=== PATIENT | female | born 1985 | race Caucasian/White ===

== ENCOUNTER → 2019-07-31 11:37 | Outpatient (CLI) | payer OTHER, SELFPAY ==
[2019-08-01 14:31] LABS: Strep Grp B PCR POS for Grp B Strep
== END ==
PROVIDERS: Visit Provider Family Medicine
DX: Z34.90 Encounter for supervision of normal pregnancy, unspecified, unspecified trimester (principal); Z3A.36 36 weeks gestation of pregnancy
CPT/HCPCS: 87653

== ENCOUNTER 2019-09-01 18:15 | Inpatient (IN) | payer OTHER, SELFPAY ==
[2019-09-01] MEDS: miSOPROStoL 25 MCG TABLET VAG (18:45)
[2019-09-01 20:00] LABS: Add Manual Diff / Slide Review NO; Basophils Absolute Auto 100 /uL (0-100); Basophils Percent Auto 0.8 % (0-2); Eosinophils Absolute Auto 100 /uL (0-450); Eosinophils Percent Auto 0.8 % (2-4); Hematocrit 35.4 % (36-46); Hemoglobin 12.1 g/dL (12.0-16.0); Lymphocytes Absolute Auto 2000 /uL (1100-4500); Lymphocytes Percent Auto 17.2 % (25-40); Mean Corpuscular HGB Conc 34.1 % (30-36); Mean Corpuscular Hemoglobin 30.9 PG (26-34); Mean Corpuscular Volume 90.6 fL (80-100); Monocytes Absolute Auto 600 /uL (0-900); Monocytes Percent Auto 5.3 % (3-14); Neutrophils Absolute Auto 8900 /uL (1500-7000); Neutrophils Percent Auto 75.9 % (50-75); Platelet Count 178 X10^3/uL (150-400); Red Cell Distribution Width 14.1 % (11.6-14.8); White Blood Cell Count 11.7 X10^3/uL (4.5-11.0)
[2019-09-02] MEDS: PENICILLIN G POTASSIUM 5,000,000 UNIT in DEXTROSE 5% IN WATER 250 ML IV (01:44)
[2019-09-02] MEDS: LACTATED RINGERS 1,000 ML 100 ML IV ×2 (01:44→03:42)
--- NOTE | 2019-09-02 03:11 | P.HPOB_ITS ---
OB HPI Date/Time Date of admission: 09/01/19 Date Patient Seen: 09/02/19 Time Patient Seen: 03:11 History of Present Condition Chief complaint: EVAL OF LABOR : 1 Para: 0 Estimated Date of Delivery: 08/24/19 Estimated Gestational Age (weeks): 41w2d Narrative: Graciela Edwards is a 34 year old at 41w2d who presented for IOL for post-dates. Pt denies contractions, bleeding, LOF prior to presentation. She was feeling baby move regularly. Indications Indication for induction OB: post dates History of Present care: good care and pounds weight gain (48) Dating criteria: based on 1st trimester US only Ultrasounds: normal 1st trimester US and normal mid trimester US Obstetrical complications: none Medical complications: none Preadmission Labs Blood type: O (+) positive -: Antibody screen: negative, GBS status: positive, HBsAG: negative, HIV: negative and RPR/VDLR: negative -: Chlamydia screen: not detected and Gonorrhea screen: not detected -: Rubella: immune and Varicella: immune HCT: 34.1 PAP: Normal Integrated screen: Negative 1 hr GTT: 122 Evaluation Evaluation Baseline heart rate: 150 Variability: Moderate (11-25) monitor accelerations: Present monitor decelerations: Variable Contraction Frequency (minutes): 2 Uterine Contraction Intensity: Strong/Firm Category of Tracing: II Cervical dilation (cm): 8 Cervical effacement (%): 100 station: +1 Laboratory results: Laboratory Tests 09/01/19 09/01/19 19:57 19:57 WBC 11.7 H RBC 3.90 L Hgb 12.1 Hct 35.4 L MCV 90.6 MCH 30.9 MCHC 34.1 RDW 14.1 Plt Count 178 Neut % (Auto) 75.9 H Lymph % (Auto) 17.2 L [place] % (Auto) 5.3 Eos % (Auto) 0.8 L Baso % (Auto) 0.8 Neut # (Auto) 8900 H Lymph # (Auto) 2000 [place] # (Auto) 600 Eos # (Auto) 100 Baso # (Auto) 100 Blood Type O Positive Antibody Screen Negative PFSH Family History (Updated 06/20/19 @ 11:53 by Bety Nelson RN) Grandfather Bone cancer Grandmother Leukemia Grandfather History of quadruple bypass Grandmother Myocardial infarction Social History marital status: household members: spouse pets and animals: Yes (X 1 cat and aware) education level: college (Univ.Degree) occupational status: unemployed current occupational exposures/hazards: No special kwasi needs: No Smoking Status: Never smoker Meds Home Medications and Allergies Home Medications Medication Instructions Recorded Confirmed Type prenat.vits,eloina,etd-xlpj-uyvvo 1 tab PO DAILY 06/20/19 08/07/19 History Allergies Allergy/AdvReac Type Severity Reaction Status Date / Time No Known Drug Allergies Allergy Verified 08/07/19 11:48 Exam Narrative Exam Narrative: Gen: NAD, laying comfortably in bed, appears well CV: RRR, no murmurs Resp: clear to auscultation bilaterally Abd: soft, nontender, nondistended, gravid Ext: trace edema Objective Labs Result Diagrams: 09/01/19 19:57 Labs: Laboratory Results - last 24 hr 09/01/19 09/01/19 19:57 19:57 WBC 11.7 H RBC 3.90 L Hgb 12.1 Hct 35.4 L MCV 90.6 MCH 30.9 MCHC 34.1 RDW 14.1 Plt Count 178 Neut % (Auto) 75.9 H Lymph % (Auto) 17.2 L [place] % (Auto) 5.3 Eos % (Auto) 0.8 L Baso % (Auto) 0.8 Neut # (Auto) 8900 H Lymph # (Auto) 2000 [place] # (Auto) 600 Eos # (Auto) 100 Baso # (Auto) 100 Blood Type O Positive Antibody Screen Negative Assessment and Plan Assessment and Plan Assessment and Plan narrative: 34yo at 41w2d who presented for IOL for post-dates. Pt without any complications in her . Received 1 dose of cytotec thus far, rapidly into active labor. Now with variable decels but overall reassuring FHT. GBS positive, received one dose of Penicillin thus far. Rh positive. - Expectant management, anticipate - Continue Penicillin prophylaxis, will attempt to avoid AROM until 2nd dose running - Epidural in place for pain control - No additional augmentation medications at this time. Continue to monitor c ontraction frequency.
--- NOTE | 2019-09-02 03:19 | PM.AN.REGBLK ---
[facility] <Casper Govea, DO - Last Filed: 09/02/19 13:44> Pre-procedure Procedure: Continuous Lumbar Epidural for L&D Attending OB provider: Maria R MARCH/DUY narrative: term labor, no complications Hx: No personal or family history of anesthesia problems. ASA Class: II Labs: Hct 35.4 % (36-46) L 09/01/19 19:57 Plt Count 178 X10^3/uL (150-400) 09/01/19 19:57 Medications: Current Medications Generic Name Dose Route Start Last Admin Trade Name Freq PRN Reason Stop Dose Admin Calcium Carbonate 500 mg 09/01/19 18:26 Tums PO Q2HR PRN Dyspepsia Fentanyl 50 mcg 09/01/19 18:26 Sublimaze IV Q1H PRN Pain, Moderate (4-6) Penicillin G Potassium 3,000,000 unit in 50 mls @ 100 mls/hr 09/01/19 18:30 Penicillin G Potassium IV Q4H HERMINIA Oxytocin/Lactated Ringer's 30 unit in 500 mls @ 3 mls/hr 09/01/19 18:30 Oxytocin Premix IV TITRATE HERMINIA Protocol 3 MILLIUNIT/MIN Lactated Ringer's 1,000 mls @ 100 mls/hr 09/01/19 18:30 09/02/19 01:44 Lactated Ringers IV 100 mls/hr CONT HERMINIA Administration Misoprostol 25 mcg 09/01/19 18:26 09/01/19 18:45 Cytotec VAG 25 mcg Q4HR PRN Administration Labor Induction Naloxone HCl 0.2 mg 09/01/19 18:26 Narcan IV Q2MIN PRN Opiate Reversal Ondansetron HCl 4 mg 09/01/19 18:26 Zofran IV Q4HR PRN Nausea And Vomiting Allergies: Allergies Allergy/AdvReac Type Severity Reaction Status Date / Time No Known Drug Allergies Allergy Verified 08/07/19 11:48 Procedure Insertion date: 09/02/19 Insertion time: 02:30 Prep/Local: betadine x3 Interspace: L2-3 Patient position: sitting Needle: 18 gauge wst.cntead (CSE: 27g Pencan through Hustead, clear CSF, 0.75mL 0.25% bupiv) Loss of resistance with: saline MARCELLUS at (cm): 3 Catheter placed at SKIN (cm): 9 Catheter in SPACE (cm): 6 Initial Medications TEST DOSE time: 02:31 TEST DOSE: 1.5% lidocaine with epinephrine 1:200k (mL): 3 BOLUS DOSE time: 02:32 BOLUS DOSE (mL): 3 BOLUS DOSE med: other (2% lidocaine) Infusion INFUSION: 0.125% bupivacaine and with fentanyl 2 mcg/mL Initial rate (mL/hr): 6 Post-procedure Anesthesia time START: 02:25 Anesthesia time END: 09:29 Post-procedure Anesthesia Assessment: Yes CV function: HR/BP stable, Yes Resp function: RR/sat/airway adequate, Yes Post-op hydration adequate, Yes Pain control adequate, Yes Nausea & vomiting absent and Yes Mental status appropriate
[2019-09-02] MEDS: PENICILLIN G POTASSIUM 3,000,000 UNIT/50 ML FROZ.PIGGY 100 UNIT IV (05:39)
--- NOTE | 2019-09-02 05:41 | PM.OBPNLAB ---
Date/Time Date Patient Seen: 09/02/19 Time Patient Seen: 05:40 Pain Control Pain control: epidural Pelvic Exam Dilation (cm): 10 Effacement (%): 100 station: +2 Amniotic membrane status: Ruptured Comments: After informed consent, AROM performed with production of meconium-stained fluid Contractions Monitor mode: External Contraction frequency (min): 2 Contraction duration (min): 1 Contraction pattern: Regular Contraction intensity: Strong/Firm Status status: Category l Heart Rate Baseline: 145 Monitor Accelerations: Present Monitor Decelerations: Absent Monitor Variability: Moderate Assessment and Plan Comments: 34yo at 41w2d here for IOL for post-dates. Received one dose of cytotec overnight. AROM performed with production of meconium-stained fluid. GBS positive, Rh positive. - Expectant management, anticipate - FHT reassuring - Continue Penicillin prophylaxis, currently on 2nd dose of Penicillin - Epidural for pain control in place
[2019-09-02] MEDS: OXYTOCIN 10 UNIT/ML VIAL 20 UNIT (09:40)
--- NOTE | 2019-09-02 10:28 | PM.OBPRVD ---
Labor & Delivery Delivery date: 09/02/19 Intrapartal events: None Cervical ripening method: per misoprostal protocol Induction method: none Delivery augmentation: rupture of membranes Delivery monitor: external FHT Route of delivery: Episiotomy description: None L&D Laceration Description: Perineal - 2nd Degree Estimated blood loss (mL): 300 Anesthesia type: Epidural Narrative: PROCEDURE: at 41w21 presented for post-dates IOL and was admitted to Labor and Delivery. The patient progressed through the 1st stage over 9 hours. Pt received 2 doses of Penicillin prior to delivery. AROM wasw performed with production of meconium-stained fluid. Pain was controlled with an epidural. The patient progressed through the 2nd stage over 4 hours and delivered a viable female infant with APGARs 9/9 at 9:29 via without complications. The perineum and vagina were inspected with 2nd degree laceration repaired with 2-O Chromic. PREPROCEDURE DIAGNOSIS: Intrauterine at 41w1d GBS positive RH positive POSTPROCEDURE DIAGNOSIS: Intrauterine at 41w2d, delivered Same as preprocedure GBS positive, adequate prophylaxis ROM APPEARANCE: Meconium-stained BABY A DELIVERY TIME: 9:29 BABY A WEIGHT: 9lb3.8oz BABY A NUCHAL CORD: No PLACENTA DELIVERY TIME: 9:34 PLACENTA APPEARANCE: Intact [facility] Baby 1: gender: Female Presentation: vertex position: Right Occiput Anterior Placenta delivery description: Spontaneous cord vessel description: 3 Vessels
[2019-09-02] MEDS: IBUPROFEN 600 MG TABLET PO ×3 (11:12→23:54)
[2019-09-02] MEDS: DERMOPLAST SPRAY 20% 60 ML 1 SPRAY TOP (11:13)
[2019-09-02 14:34] VITALS: BP 121/61
[2019-09-03] MEDS: IBUPROFEN 600 MG TABLET PO ×2 (05:45→12:08)
--- NOTE | 2019-09-03 09:13 | P.DS_ITS ---
Discharge Providers Provider Date of admission: 09/01/19 18:15 Discharge Date: 09/03/19 Consults: 09/03/19 10:28 Consult to [facility] Routine Comment: Discharge provider: Maria R Guajardo MD Summary Hospital Course Date Patient Seen: 09/03/19 Time Patient Seen: 08:00 Procedures: Spontaneous vaginal delivery Hospital Course: The pt presented for IOL for post-dates. She received one dose of cytotec, and then went into active labor. She received an epidural for pain control. She had adequate GBS prophylaxis with penicillin. AROM was performed with meconium- stained fluid. She progressed to complete and had an uncomplicated of a viable baby girl on 09/02/19. A second degree perineal laceration was then repaired. , there were no complications. At the time of discharge she was voiding, ambulating, and passing flatus without difficulty. Her lochia was decreasing appropriately. Her pain was well controlled. She was with good latch. She will f/u for 6 week check. She is undecided regarding contraception. Peripartum Data Infant Delivery Method: Natural Vaginal Laceration description: Perineal - 2nd Degree Episiotomy description: None Procedures: Spontaneous vaginal delivery complications: none [place] 1: Gender: Female Disposition of : home Status at Discharge Cognitive/behavioral status at discharge: oriented Functional status at discharge: independent ambulation Overall status at discharge: patient is progressing back to baseline Time Spent with Patient Time attestation: Total time spent providing and/or coordinating discharge services: Time spent: Greater than 30 minutes Objective Labs Result Diagrams: 09/01/19 19:57 Exam Narrative Exam Narrative: Gen: NAD, sitting comfortably in bed, appears well CV: RRR, no murmurs Resp: clear to auscultation bilaterally Abd: soft, nontended, nondistended, normoactive bowel sounds, fundus firm and below the umbilicus Ext: no edema Discharge Plan Discharge Plan Patient Disposition: Home Discharge orders & Medications Prescriptions: New acetaminophen 325 mg Tablet 650 mg PO Q6HR PRN (Reason: Pain, Mild (1-3)) Qty: 30 RF: 0 Dermoplast (with menthol) 20-0.5 % Aerosol 1 spray topical Q1HR PRN (Reason: perineal pain) Qty: 15 RF: 0 docusate sodium [DOK] 100 mg Capsule 100 mg PO DAILY Qty: 30 RF: 0 ibuprofen 600 mg Tablet 600 mg PO Q6HR PRN (Reason: Pain, Mild (1-3)) Qty: 30 RF: 0 [id number]-Xyktwi Cream 1 applic topical PRN PRN (Reason: Tenderness) Qty: 15 RF: 0 Continued prenat.vits,eloina,[id number] Tablet 1 tab PO DAILY RF: 0 Follow up/Referrals: Maria R Guajardo MD [Physician] - 6 Weeks (Dr Guajardo will make appointment for 6 weeks) Diet/Activity/Treatments Diet: Regular Visit Report/Discharge Packet Instructions: DI for Labor and Delivery, Vaginal Stand Alone Forms: Discharge: Care Visit Report Forms: Patient Portal/API, Stroke Signs & Symptoms
[2019-09-03 10:38] VITALS: BP 121/61; PULSE 90; RESP 18; TEMP 36.3
[2019-09-03] MEDS: PRENATAL VIT,CALC/IRON/FOLIC 1 TABLET 1 TAB PO (12:08)
[2019-09-03] MEDS: DOCUSATE 100 MG CAPSULE PO (12:08)
== END 2019-09-03 14:15 | disposition home or self-care (01) | DRG 807 ==
PROVIDERS: Admitting Provider Family Medicine; Referring Provider Family Medicine; Visit Provider Family Medicine
DX: O48.0 Post-term pregnancy (principal); Z37.0 Single live birth; Z3A.41 41 weeks gestation of pregnancy; O99.824 Streptococcus B carrier state complicating childbirth; O77.0 Labor and delivery complicated by meconium in amniotic fluid; O70.1 Second degree perineal laceration during delivery
CPT/HCPCS: 01967; 59050; 59410; 85025; 86850; 86900; 86901; G0379; J2540; J2590